=== PATIENT | male | born 1990 | race Two or more races ===

== ENCOUNTER 2021-04-05 23:06 | Emergency (ER) | payer SELFPAY ==
[~2021-04-05] VITALS: Ht 175.3 cm; Wt 84.0 kg
[2021-04-06 00:25] VITALS: BP 147/68
--- NOTE | 2021-04-06 03:21 | PHYS DOC ---
Past Medical History Past Medical History: No Pertinent History Past Surgical History: No Surgical History Smoking Status: Current Some Day Smoker Alcohol Use: Occasionally General Adult EDM: Chief Complaint: SORE THROAT HPI: HPI: Patient is a 30 yo male presenting for sore throat. Feels he has had strep throat in past and symptoms feel similar. No fever, sore throat, no cough, painful cervical lymphadenopathy. No other known medical issues or medications taken on a daily basis Review of Systems: Review of Systems: Fourteen body systems of review of systems have been reviewed. See HPI for pertinent positives and negative responses, other estrada all other systems are negative, non-pertinent or non-contributory Heart Score: C/O Chest Pain: No Risk Factors: Risk Factors: DM, Current or recent (<one month) smoker, HTN, HLP, family history of CAD, obesity. Risk Scores: Score 0 - 3: 2.5% MACE over next 6 weeks - Discharge Home Score 4 - 6: 20.3% MACE over next 6 weeks - Admit for Clinical Observation Score 7 - 10: 72.7% MACE over next 6 weeks - Early Invasive Strategies Allergies: Allergies: Allergies Coded Allergies Type Severity Reaction Last Updated Verified No Known Drug Allergies 04/06/21 No Physical Exam: PE: Constitutional: Well developed, well nourished, no acute distress, non-toxic appearance. HENT: Normocephalic, atraumatic, bilateral external ears normal, oropharynx eryt hematous, no oral exudates, no phonation changes, tolerating secretions, nose normal. Eyes: PERRLA, EOMI, conjunctiva normal, no discharge. Neck: Normal range of motion, no tenderness, supple, no stridor. There is anterior cervical lymphadenopathy present Cardiovascular: Heart rate regular per monitor Lungs & Thorax: No respiratory distress or accessory muscle use, bilateral chest rise Abdomen: Abdomen soft, non-tender, bowel sounds present in all quadrants, no guarding or rebound, nonacute abdomen. Skin: Warm, dry, no erythema, no rash. Back: No tenderness, no CVA tenderness. Extremities: No tenderness, no cyanosis, no clubbing, ROM intact, no edema. Neurologic: Alert and oriented X 3, grossly normal motor & sensory function, no focal deficits noted. Psychologic: Affect normal, judgement normal, mood normal. EKG: EKG: [] Radiology/Procedures: Radiology/Procedures: [] Course & Med Decision Making: Course & Med Decision Making VSS, HPI, PE and ER workup consistent with +Strep Joint-decision to treat with penicillin. Patient advised to contact PCP for close outpatient follow-up Strict return precautions discussed with good understanding, all questions and concerns addressed prior to departure Rebekah Disclaimer: Rebekah Disclaimer: This electronic medical record was generated, in whole or in part, using a voice recognition dictation system. Departure Departure Impression: Primary Impression: Strep pharyngitis Disposition: HOME / SELF CARE / HOMELESS Condition: STABLE Referrals: NO PCP (PCP) Patient Instructions: Strep Throat Additional Instructions: You were seen for sore throat. You most likely have a bacterial infection called strep throat. We treated you with antibiotics. You should not return to work until your fever and other symptoms have resolved. You should return to the ED immediately if you develop difficulty breathing, difficulty swallowing your spit, continued fever, neck swelling, or any other new or concerning symptoms. You are contagious and should not share utensils, drinks, or kiss anyone until your symptoms resolve. Scripts Penicillin V Potassium (PENICILLIN V POTASSIUM) 500 Mg Tablet 1 TAB PO TID for 10 Days, #29 TAB Prov: MICKEY RTOHMAN DO 04/06/21 MICKEY ROTHMAN DO April 06, 2021 03:21
[2021-04-06] MEDS ORDERED: PENI500T PO (04:02)
[2021-04-06] MEDS: PENICILLIN V K 250 MG TABLET. PO ONE (04:14)
== END 2021-04-06 04:15 | disposition home or self-care (01) ==
LOC: ER 23:06
DX: J02.0 Streptococcal pharyngitis (principal); B95.0 Streptococcus, group A, as the cause of diseases classified elsewhere
CPT/HCPCS: 87880; 99283